=== PATIENT | female | born 1970 | race African-American/Black ===

== ENCOUNTER 2016-07-13 12:30 | Emergency (ER) | payer OTHER ==
[2016-07-13] VITALS (7 sets, daily range): BP systolic 168–233; BP diastolic 86–113; PULSE 59–87; RESP 18–20; TEMP 97.6; O2SAT 94–99
[~2016-07-13 12:30] MED LIST: AMLO5TAB96 PO; BETH25TA PO; CLON0.5T PO; ENAL20TA PO; ESCI20TA PO; HYDR-2768 PO; LEVO75TA3 PO; MEDR5TAB20 PO; NEXI40CA PO; PRED5TAB PO; RANI300T PO
[2016-07-13 13:21] LABS: AUTOMATED NEUTROPHIL # 3.4 TH/MM3 (1.8-7.7); BASOPHIL % 0.5 % (0.0-2.0); EOSINOPHIL % 0.1 % (0.0-4.0); HEMATOCRIT 34.1 % (35.0-46.0); HEMO FLAGS DIFF FINAL; LYMPH % 20.7 % (9.0-44.0); MEAN CELL VOLUME 96.1 FL (80.0-100.0); MEAN CORPUSCULAR HEMOGLOBIN 30.8 PG (27.0-34.0); MEAN CORPUSCULAR HGB CONC 32.1 % (32.0-36.0); MONO % 7.7 % (0.0-8.0); PLATELET COUNT 147 TH/MM3 (150-450); RED BLOOD COUNT 3.55 MIL/MM3 (4.00-5.30); WHITE BLOOD COUNT 4.8 TH/MM3 (4.0-11.0)
[2016-07-13 13:29] LABS: APTT (PATIENT) 27.2 SEC (24.3-30.1); INTERNATIONAL NORMALIZED RATIO 0.9 RATIO; PROTHROMBIN TIME - PATIENT 10.1 SEC (9.8-11.6)
[2016-07-13 13:43] LABS: ALT (GPT) 31 U/L (10-53); ANION GAP 8 MEQ/L (5-15); AST (GOT) 18 U/L (15-37); BICARBONATE 24.2 MEQ/L (21.0-32.0); BLOOD UREA NITROGEN 21 MG/DL (7-18); CHLORIDE 107 MEQ/L (98-107); GLOMERULAR FILTRATION RATE 66 ML/MIN (>89); SODIUM (NA) 139 MEQ/L (136-145)
[2016-07-13 13:45] LABS: BLOOD, URINE NEG (NEG); COMMENT (UR) CULT NOT INDICATED; CULTURE IF INDICATED CULT NOT INDICATED; GLUCOSE,URINE NEG (NEG); KETONE, URINE NEG (NEG); MUCUS URINE FEW /lpf (OCC); NITRITE,URINE NEG (NEG); SQUAMOUS EPITHELIAL CELL URINE <1 /hpf (0-5); URINE COLOR YELLOW (YELLW/STRAW)
[2016-07-13 13:47] LABS: ALKALINE PHOSPHATASE 72 U/L (45-117); TOTAL BILIRUBIN ADULT 0.8 MG/DL (0.2-1.0)
[2016-07-13 14:00] LABS: CREATINE KINASE 62 U/L (26-192)
--- NOTE | 2016-07-13 14:21 | RADRPT ---
EXAM DATE/TIME: 07/13/2016 14:15 [facility] COMPARISON: CHEST SINGLE AP, February 07, 2013, 21:24. INDICATIONS : High blood pressure, headache, earache. MEDICAL HISTORY : Hypertension. SURGICAL HISTORY : None. ENCOUNTER: Initial ACUITY: 1 day PAIN SCORE: 4/10 LOCATION: Bilateral chest FINDINGS: There is moderate cardiomegaly. The lungs are clear. The bony structures are grossly intact. CONCLUSION: 1. Cardiomegaly. Heart size has increased compared to previous dated 02/07/13. Stu Worley MD on July 13, 2016 at 14:19 Board Certified Radiologist. This report was verified electronically.
--- NOTE | 2016-07-13 15:53 | PD ---
HPI Chief Complaint: Hypertension Time Seen by Provider: 15:53 Travel History International Travel<30 days: No Contact w/Intl Traveler<30days: No Traveled to known affect area: No History of Present Illness HPI 46 year-old female history of lupus, hypertension, and headache presents to the emergency department today for evaluation of persistent hypertension. Patient was seen today at her primary care provider's office. Her blood pressure was extremely elevated and remained this way after 0.2 mg of clonidine. She was advised to come to the emergency department. Patient states she has typically has a headache but over the last week she has noticed it getting really bad on the left side of her head. Has had no nausea or vomiting. No focal deficits or weakness. No chest tightness. She has had some mild shortness of breath but states this is also normal for her.. She has no other symptoms to report. PFSH Past Medical History Anemia: Yes Autoimmune Disease: Yes (LUPUS) Cancer: No Cardiovascular Problems: No Diabetes: No Gastrointestinal Disorders: Yes (GASTROPARESIS) GERD: Yes Glaucoma: No Hepatitis: No Hiatal Hernia: Yes Hypertension: Yes Respiratory: No Thyroid Disease: No Past Surgical History Abdominal Surgery: Yes (CHOLECYSTECTOMY) Section: Yes Cholecystectomy: Yes Gynecologic Surgery: Yes (C SECTION) Pacemaker: No Other Surgery: Yes (UTERINE ABLATION) Social History Alcohol Use: No Tobacco Use: No Substance Use: No Allergies-Medications (Allergen,Severity, Reaction): Coded Allergies: Penicillin (Verified Allergy, Intermediate, HIVES, 07/13/16) Iodine (Verified Adverse Reaction, Mild, RASH, 07/13/16) Reported Meds & Prescriptions Reported Meds & Active Scripts Active Clonidine (Clonidine HCl) 0.3 Mg Tab 0.3 Mg PO BID Reported Vitamin D3 (Cholecalciferol) 2,000 Unit Chew 2,000 Units CHEW DAILY Prednisone 20 Mg Tab 20 Mg PO DAILY Metoprolol Tartrate 100 Mg Tab 100 Mg PO DAILY Losartan (Losartan Potassium) 100 Mg Tab 100 Mg PO DAILY Indapamide 1.25 Mg Tab Hydrocodone-Acetaminophen 5-325 mg Tab 1 Tab PO Q4H PRN Clonidine (Clonidine HCl) 0.1 Mg Tab 0.1 Mg PO BID Review of Systems Except as stated in HPI: all other systems reviewed are Neg Physical Exam Narrative GENERAL: Obese female patient, ambulatory and in no acute distress SKIN: Warm and dry. HEAD: Atraumatic. Normocephalic. EYES: Pupils equal and round. No scleral icterus. No injection or drainage. ENT: No nasal bleeding or discharge. Mucous membranes pink and moist. NECK: Trachea midline. No JVD. CARDIOVASCULAR: Regular rate and rhythm. No murmur appreciated. RESPIRATORY: No accessory muscle use. Clear to auscultation. Breath sounds equal bilaterally. GASTROINTESTINAL: Abdomen soft, non-tender, nondistended. Hepatic and splenic margins not palpable. MUSCULOSKELETAL: No obvious deformities. No clubbing. No cyanosis. No edema. NEUROLOGICAL: Awake and alert. No obvious cranial nerve deficits. Motor grossly within normal limits. Normal speech. PSYCHIATRIC: Appropriate mood and affect; insight and judgment normal. Data Data Last Documented VS Vital Signs Date Time Temp Pulse Resp B/P Pulse Ox O2 Delivery O2 Flow Rate FiO2 07/13/16 20:00 86 18 192/94 95 Room Air Orders Complete Blood Count With Diff (07/13/16 13:03) Comprehensive Metabolic Panel (07/13/16 13:03) Troponin I (07/13/16 13:03) Ckmb (Isoenzyme) Profile (07/13/16 13:03) Urinalysis - C+S If Indicated (07/13/16 13:03) Coag Profile (07/13/16 13:03) Chest, Pa & Lat (07/13/16 13:03) Ct Brain W/O Iv Contrast(Rout) (07/13/16 ) Hydralazine (Apresoline) (07/13/16 17:45) Clonidine (Catapres) (07/13/16 18:30) Oxycodone-Acetamin 5-325 Mg (Percocet (07/13/16 20:00) Metoprolol Tartrate (Lopressor) (07/13/16 20:00) Labs Laboratory Tests Test 07/13/16 07/13/16 12:55 13:00 Urine Color YELLOW Urine Turbidity CLEAR Urine pH 6.0 Urine Specific [place] 1.015 Urine Protein NEG mg/dL Urine Glucose (UA) NEG mg/dL Urine Ketones NEG mg/dL Urine Occult Blood NEG Urine Nitrite NEG Urine Bilirubin NEG Urine Urobilinogen LESS THAN 2.0 MG/DL Urine Leukocyte Esterase NEG Urine RBC LESS THAN 1 /hpf Urine WBC LESS THAN 1 /hpf Urine Squamous Epithelial <1 /hpf Cells Urine Mucus FEW /lpf Microscopic Urinalysis Comment CULT NOT INDICATED White Blood Count 4.8 TH/MM3 Red Blood Count 3.55 MIL/MM3 Hemoglobin 10.9 GM/DL Hematocrit 34.1 % Mean Corpuscular Volume 96.1 FL Mean Corpuscular Hemoglobin 30.8 PG Mean Corpuscular Hemoglobin 32.1 % Concent Red Cell Distribution Width 14.0 % Platelet Count 147 TH/MM3 Mean Platelet Volume 10.0 FL Neutrophils (%) (Auto) 71.0 % Lymphocytes (%) (Auto) 20.7 % Monocytes (%) (Auto) 7.7 % Eosinophils (%) (Auto) 0.1 % Basophils (%) (Auto) 0.5 % Neutrophils # (Auto) 3.4 TH/MM3 Lymphocytes # (Auto) 1.0 TH/MM3 Monocytes # (Auto) 0.4 TH/MM3 Eosinophils # (Auto) 0.0 TH/MM3 Basophils # (Auto) 0.0 TH/MM3 CBC Comment DIFF FINAL Differential Comment Prothrombin Time 10.1 SEC Prothromb Time International 0.9 RATIO Ratio Activated Partial 27.2 SEC Thromboplast Time Sodium Level 139 MEQ/L Potassium Level 4.0 MEQ/L Chloride Level 107 MEQ/L Carbon Dioxide Level 24.2 MEQ/L Anion Gap 8 MEQ/L Blood Urea Nitrogen 21 MG/DL Creatinine 1.08 MG/DL Estimat Glomerular Filtration 66 ML/MIN Rate Random Glucose 117 MG/DL Calcium Level 8.1 MG/DL Total Bilirubin 0.8 MG/DL Aspartate Amino Transf 18 U/L (AST/SGOT) Alanine Aminotransferase 31 U/L (ALT/SGPT) Alkaline Phosphatase 72 U/L Total Creatine Kinase 62 U/L Troponin I 0.03 NG/ML Total Protein 7.4 GM/DL Albumin 3.7 GM/DL [facility] Medical Decision Making Medical Screen Exam Complete: Yes Emergency Medical Condition: Yes Medical Record Reviewed: Yes Differential Diagnosis Hypertension versus hypertension urgency versus hypertension crisis versus migraine headache versus intracranial hemorrhage versus electrolyte abnormality Narrative Course 46 year-old female presents to the emergency department for evaluation. Workup was initiated in triage. Once medical bed becomes available, patient will be transferred and care assumed by that provider. Scripts Clonidine 0.3 Mg Tab0.3 Mg PO BID #60 TAB Ref 0 Prov:Candi Ames MD 07/13/16 Condition: Stable Emy Wei Jul 13, 2016 15:53
[2016-07-13] MEDS ORDERED: CHOL1CHW5 CHEW (17:12)
[2016-07-13] MEDS ORDERED: HYDR-3516 PO (17:12)
[2016-07-13] MEDS ORDERED: METO100T PO (17:12)
[2016-07-13] MEDS ORDERED: CLON0.1T PO (17:12)
[2016-07-13] MEDS ORDERED: LOSA100T PO (17:12)
[2016-07-13] MEDS ORDERED: INDA1.25 (17:12)
[2016-07-13] MEDS ORDERED: PRED20 PO (17:12)
--- NOTE | 2016-07-13 17:25 | RADRPT ---
EXAM DATE/TIME: 07/13/2016 17:07 [facility] COMPARISON: CT BRAIN W/O CONTRAST, February 07, 2013, 21:28. MRI BRAIN W & W/O CONTRAST, February 07, 2013, 2 2:52. INDICATIONS : Left sided cephalgia with high blood pressure. RADIATION DOSE: 44.62 CTDIvol (mGy) MEDICAL HISTORY : Hypertension. Lupus. Anemia. SURGICAL HISTORY : None. ENCOUNTER: Initial ACUITY: 1 day PAIN SCALE: 5/10 LOCATION: Left cranial TECHNIQUE: Multiple contiguous axial images were obtained of the head. Using automated exposure control and adj ustment of the mA and/or kV according to patient size, radiation dose was kept as low as reasonably a chievable to obtain optimal diagnostic quality images. FINDINGS: CEREBRUM: The ventricles are normal for age. No evidence of midline shift, mass lesion, hemorrhage or acute in farction. No extra-axial fluid collections are seen. POSTERIOR FOSSA: The cerebellum and brainstem are intact. The 4th ventricle is midline. The cerebellopontine angle i s unremarkable. EXTRACRANIAL: The visualized portion of the orbits is intact. Some fatty density possible lipid cyst within the [place], unchanged SKULL: The calvaria is intact. No evidence of skull fracture. CONCLUSION: Normal examination. Noah Ball MD on July 13, 2016 at 17:23 Board Certified Radiologist. This report was verified electronically.
[2016-07-13] MEDS ORDERED: hydrALAZINE HCL 10 MG TAB PO ONE (17:45)
[2016-07-13] MEDS ORDERED: CLON0.3T PO (18:19)
[2016-07-13] MEDS ORDERED: cloNIDine HCL 0.2 MG TAB PO ONE (18:30)
--- NOTE | 2016-07-13 18:47 | PD ---
Physical Exam Date Seen by Provider: Jul 13, 2016 Time Seen by Provider: 18:40 Narrative 46-year-old female that presents to the ED for evaluation of hypertension. Please refer to prior providers note. Case was signed out to me by Emy RODRIGUEZ pending results of imaging and labs. Essentially patient came here for evaluation of hypertension after being told by her doctor to come here by ambulance. Data Data Last Documented VS Vital Signs Date Time Temp Pulse Resp B/P Pulse Ox O2 Delivery O2 Flow Rate FiO2 07/13/16 18:26 62 18 193/91 96 07/13/16 17:59 Room Air Orders Complete Blood Count With Diff (07/13/16 13:03) Comprehensive Metabolic Panel (07/13/16 13:03) Troponin I (07/13/16 13:03) Ckmb (Isoenzyme) Profile (07/13/16 13:03) Urinalysis - C+S If Indicated (07/13/16 13:03) Coag Profile (07/13/16 13:03) Chest, Pa & Lat (07/13/16 13:03) Ct Brain W/O Iv Contrast(Rout) (07/13/16 ) Hydralazine (Apresoline) (07/13/16 17:45) Clonidine (Catapres) (07/13/16 18:30) Labs Laboratory Tests Test 07/13/16 07/13/16 12:55 13:00 Urine Color YELLOW Urine Turbidity CLEAR Urine pH 6.0 Urine Specific [place] 1.015 Urine Protein NEG mg/dL Urine Glucose (UA) NEG mg/dL Urine Ketones NEG mg/dL Urine Occult Blood NEG Urine Nitrite NEG Urine Bilirubin NEG Urine Urobilinogen LESS THAN 2.0 MG/DL Urine Leukocyte Esterase NEG Urine RBC LESS THAN 1 /hpf Urine WBC LESS THAN 1 /hpf Urine Squamous Epithelial <1 /hpf Cells Urine Mucus FEW /lpf Microscopic Urinalysis Comment CULT NOT INDICATED White Blood Count 4.8 TH/MM3 Red Blood Count 3.55 MIL/MM3 Hemoglobin 10.9 GM/DL Hematocrit 34.1 % Mean Corpuscular Volume 96.1 FL Mean Corpuscular Hemoglobin 30.8 PG Mean Corpuscular Hemoglobin 32.1 % Concent Red Cell Distribution Width 14.0 % Platelet Count 147 TH/MM3 Mean Platelet Volume 10.0 FL Neutrophils (%) (Auto) 71.0 % Lymphocytes (%) (Auto) 20.7 % Monocytes (%) (Auto) 7.7 % Eosinophils (%) (Auto) 0.1 % Basophils (%) (Auto) 0.5 % Neutrophils # (Auto) 3.4 TH/MM3 Lymphocytes # (Auto) 1.0 TH/MM3 Monocytes # (Auto) 0.4 TH/MM3 Eosinophils # (Auto) 0.0 TH/MM3 Basophils # (Auto) 0.0 TH/MM3 CBC Comment DIFF FINAL Differential Comment Prothrombin Time 10.1 SEC Prothromb Time International 0.9 RATIO Ratio Activated Partial 27.2 SEC Thromboplast Time Sodium Level 139 MEQ/L Potassium Level 4.0 MEQ/L Chloride Level 107 MEQ/L Carbon Dioxide Level 24.2 MEQ/L Anion Gap 8 MEQ/L Blood Urea Nitrogen 21 MG/DL Creatinine 1.08 MG/DL Estimat Glomerular Filtration 66 ML/MIN Rate Random Glucose 117 MG/DL Calcium Level 8.1 MG/DL Total Bilirubin 0.8 MG/DL Aspartate Amino Transf 18 U/L (AST/SGOT) Alanine Aminotransferase 31 U/L (ALT/SGPT) Alkaline Phosphatase 72 U/L Total Creatine Kinase 62 U/L Troponin I 0.03 NG/ML Total Protein 7.4 GM/DL Albumin 3.7 GM/DL MDM Medical Record Reviewed: Yes Supervised Visit with BRIE: No Differential Diagnosis Hypertension versus hypertensive urgency versus hypertensive crisis Narrative Course 46-year-old female that presents to the ED for evaluation of hypertension. Please refer to prior providers note. Essentially the patient came here for evaluation of hypertension. Patient was found to be in the high 200s by PCP. Here her blood pressure has been in the high 190s. Patient had full workup including EKG, labs and imaging of the head and chest performed before patient was moved to the medical pot. Labs and imaging were essentially unremarkable. No sign of acute disease. Patient did have an enlarged hard compared to the study in 2013 as well as slight dehydration. Case was discussed with my attending who recommends given patient hydralazine as well as clonidine right now to see whether this will bring down her blood pressure. Patient every takes 3 different blood pressure medications including clonidine, losartan and metoprolol. At this time my attending recommends increasing the dose of clonidine from 0.2 mg to 0.3 mg. Patient did have good results. Patient will prefer to go home. Patient was told to follow up with PCP. See ED if worsening symptoms. Diagnosis Primary Impression: Hypertension Qualified Code: I10 - Essential hypertension Patient Instructions: General Instructions Additional Instruction: Take new prescription of clonidine. Otherwise take 3 of the 0.01 mg clonidine twice a day. Follow with your PCP. See ED worsening symptoms. Med/Other Pt SpecificInfo: Existing Med Changed (clonidine to 0.3 mg BID) Scripts Clonidine 0.3 Mg Tab0.3 Mg PO BID #60 TAB Ref 0 Prov:Candi Ames MD 07/13/16 Disposition: 01 DISCHARGE HOME Condition: Stable Wang Hollingsworth Jul 13, 2016 18:47
--- NOTE | 2016-07-13 18:54 | PD ---
Data Data Last Documented VS Vital Signs Date Time Temp Pulse Resp B/P Pulse Ox O2 Delivery O2 Flow Rate FiO2 07/13/16 18:26 62 18 193/91 96 07/13/16 17:59 Room Air Orders Complete Blood Count With Diff (07/13/16 13:03) Comprehensive Metabolic Panel (07/13/16 13:03) Troponin I (07/13/16 13:03) Ckmb (Isoenzyme) Profile (07/13/16 13:03) Urinalysis - C+S If Indicated (07/13/16 13:03) Coag Profile (07/13/16 13:03) Chest, Pa & Lat (07/13/16 13:03) Ct Brain W/O Iv Contrast(Rout) (07/13/16 ) Hydralazine (Apresoline) (07/13/16 17:45) Clonidine (Catapres) (07/13/16 18:30) Labs Laboratory Tests Test 07/13/16 07/13/16 12:55 13:00 Urine Color YELLOW Urine Turbidity CLEAR Urine pH 6.0 Urine Specific [place] 1.015 Urine Protein NEG mg/dL Urine Glucose (UA) NEG mg/dL Urine Ketones NEG mg/dL Urine Occult Blood NEG Urine Nitrite NEG Urine Bilirubin NEG Urine Urobilinogen LESS THAN 2.0 MG/DL Urine Leukocyte Esterase NEG Urine RBC LESS THAN 1 /hpf Urine WBC LESS THAN 1 /hpf Urine Squamous Epithelial <1 /hpf Cells Urine Mucus FEW /lpf Microscopic Urinalysis Comment CULT NOT INDICATED White Blood Count 4.8 TH/MM3 Red Blood Count 3.55 MIL/MM3 Hemoglobin 10.9 GM/DL Hematocrit 34.1 % Mean Corpuscular Volume 96.1 FL Mean Corpuscular Hemoglobin 30.8 PG Mean Corpuscular Hemoglobin 32.1 % Concent Red Cell Distribution Width 14.0 % Platelet Count 147 TH/MM3 Mean Platelet Volume 10.0 FL Neutrophils (%) (Auto) 71.0 % Lymphocytes (%) (Auto) 20.7 % Monocytes (%) (Auto) 7.7 % Eosinophils (%) (Auto) 0.1 % Basophils (%) (Auto) 0.5 % Neutrophils # (Auto) 3.4 TH/MM3 Lymphocytes # (Auto) 1.0 TH/MM3 Monocytes # (Auto) 0.4 TH/MM3 Eosinophils # (Auto) 0.0 TH/MM3 Basophils # (Auto) 0.0 TH/MM3 CBC Comment DIFF FINAL Differential Comment Prothrombin Time 10.1 SEC Prothromb Time International 0.9 RATIO Ratio Activated Partial 27.2 SEC Thromboplast Time Sodium Level 139 MEQ/L Potassium Level 4.0 MEQ/L Chloride Level 107 MEQ/L Carbon Dioxide Level 24.2 MEQ/L Anion Gap 8 MEQ/L Blood Urea Nitrogen 21 MG/DL Creatinine 1.08 MG/DL Estimat Glomerular Filtration 66 ML/MIN Rate Random Glucose 117 MG/DL Calcium Level 8.1 MG/DL Total Bilirubin 0.8 MG/DL Aspartate Amino Transf 18 U/L (AST/SGOT) Alanine Aminotransferase 31 U/L (ALT/SGPT) Alkaline Phosphatase 72 U/L Total Creatine Kinase 62 U/L Troponin I 0.03 NG/ML Total Protein 7.4 GM/DL Albumin 3.7 GM/DL MDM Supervised Visit with BRIE: Yes Narrative Course The history, exam, and medical decision-making in the associated midlevel provider note were completed with my assistance. I reviewed and agree with the findings presented. I attest that I had a [id number] encounter with the patient on the same day, and personally performed and documented my assessment and findings in the medical record. *My assessment and Findings: This is a 46-year-old female who presents to the emergency department with headaches in the setting of high blood pressure. Patient was sent by her primary care physician for evaluation. CT of the head was unremarkable with no evidence of intracranial hemorrhage. She feels much better. Patient was given clonidine in the emergency department and can be discharged home once her blood pressure improves. Diagnosis Primary Impression: Hypertension Qualified Code: I10 - Essential hypertension Patient Instructions: General Instructions Additional Instruction: Take new prescription of clonidine. Otherwise take 3 of the 0.01 mg clonidine twice a day. Follow with your PCP. See ED worsening symptoms. Scripts Clonidine 0.3 Mg Tab0.3 Mg PO BID #60 TAB Ref 0 Prov:Candi Ames MD 07/13/16 Disposition: 01 DISCHARGE HOME Condition: Stable Candi Ames MD Jul 13, 2016 18:54
[2016-07-13] MEDS ORDERED: METOPROLOL TARTRATE 100 MG TAB PO ONE (20:00)
[2016-07-13] MEDS ORDERED: oxyCODONE/ACETAMINOPHEN 5 MG/325 MG TAB PO ONE (20:00)
--- NOTE | 2016-07-14 23:36 | EKG ---
Date Performed: 07/13/2016 Time Performed: 13:10:42 PTAGE: 46 years EKG: Sinus rhythm POSSIBLE LEFT ATRIAL ENLARGEMENT MARKED LEFT AXIS DEVIATION NONSPECIFIC T-WAVE ABNORMALITY ABNORMAL ECG PREVIOUS TRACING : 02/07/2013 21.05 DOCTOR: Madelaine Britt Interpretating Date/Time 07/14/2016 23:33:16
== END 2016-07-13 22:19 | disposition home or self-care (01) ==
LOC: NEPE 12:30
DX: I10 Essential (primary) hypertension (principal); R51 Headache; M32.9 Systemic lupus erythematosus, unspecified; R06.02 Shortness of breath; D64.9 Anemia, unspecified; R94.31 Abnormal electrocardiogram [ECG] [EKG]
CPT/HCPCS: 70450; 71020; 80053; 81001; 82550; 84484; 85025; 85610; 85730; 93005